=== PATIENT | male | born 1990 | race Caucasian/White ===

== ENCOUNTER 2019-12-02 18:40 | Emergency (ER) | payer OTHER ==
[~2019-12-02] VITALS: Ht 167.6 cm; Wt 65.3 kg
[2019-12-02] MEDS ORDERED: TRAZODONE 150150 M1 PO (18:59)
[2019-12-02] MEDS ORDERED: WELLBUTRIN 75 M75 M1 PO (18:59)
[2019-12-02 19:09] LABS: ABSOLUTE BASOPHILS 0.1 thou/uL (0.0-0.2); ABSOLUTE EOSINOPHILS 0.6 thou/uL (0.0-0.7); ABSOLUTE LYMPHOCYTES 3.6 thou/uL (0.8-5.3); ABSOLUTE MONOCYTES 0.4 thou/uL (0.0-1.2); ABSOLUTE NEUTROPHILS 2.9 thou/uL (1.6-8.1); BASOPHILS 0.9 %; EOSINOPHILS 8.2 %; HEMATOCRIT 40.9 % (42.0-52.0); HEMOGLOBIN 14.4 gm/dL (14.0-18.0); LYMPHOCYTES 48.1 %; MCH 31.4 pg (26.0-34.0); MCHC 35.3 g/dL (28.0-37.0); MONOCYTES 4.7 %; MPV 8.2 fl. (7.2-11.1); NUCLEATED RBCS 0 /100WBC; PLATELET COUNT* 220 thou/uL (150-400); POLYS 38.1 %; RDW-CV 14.5 % (10.5-14.5); WBC 7.5 thou/uL (4.0-11.0)
[2019-12-02 19:16] LABS: ANION GAP 7 mmol/L (7-16); BUN 8 mg/dL (7-18); CALCIUM 8.4 mg/dL (8.5-10.1); CHLORIDE 104 mmol/L (98-107); CO2 28 mmol/L (21-32); CREATININE 1.1 mg/dL (0.6-1.3); GLUCOSE 99 mg/dL (70-99); POTASSIUM 3.8 mmol/L (3.5-5.1); SODIUM 139 mmol/L (136-145)
[2019-12-02 19:20] LABS: PROTIME 10.6 Seconds (9.20-11.50)
[2019-12-02 19:30] LABS: ALKALINE PHOSPHATASE 76 U/L (46-116); CK-MB MASS < 0.5 ng/mL (<0.5-3.6); NT-PRO BRAIN NAT PEPTIDE 18 pg/mL (<300); SGOT 13 U/L (15-37); SGPT 21 U/L (30-65); TOTAL BILIRUBIN 0.2 mg/dL (<0.1-1.0); TOTAL PROTEIN 6.9 g/dL (6.4-8.2)
[2019-12-02 19:32] LABS: ACETAMINOPHEN < 2 ug/mL (10-30); ALCOHOL < 10 mg/dL (<10); SALICYLATE 3.2 mg/dL (2.8-20.0)
[2019-12-02 20:13] LABS: URINE BILIRUBIN NEGATIVE (Negative); URINE BLOOD NEGATIVE (Negative); URINE CLARITY CLEAR; URINE COLOR YELLOW; URINE GLUCOSE-RANDOM NEGATIVE (Negative); URINE KETONES NEGATIVE (Negative); URINE LEUKOCYTES-REFLEX NEGATIVE (Negative); URINE NITRITE-REFLEX NEGATIVE (Negative); URINE PROTEIN NEGATIVE (Negative); URINE SPECIFIC GRAVITY <= 1.005 (1.005-1.030); URINE UROBILINOGEN 0.2 E.U./dl (0.2-1.0)
[2019-12-02 20:21] LABS: AMP/METHAMP Negative (Negative); BARBITURATES Negative (Negative); BENZODIAZEPINES POSITIVE (Negative); COCAINE Negative (Negative); METHADONE Negative (Negative); OPIATES Negative (Negative); PCP Negative (Negative); THC POSITIVE (Negative)
[2019-12-02 23:03] VITALS: BP 120/71
--- NOTE | 2019-12-03 11:42 | EKG ---
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
== END 2019-12-02 23:03 | disposition home or self-care (01) ==
LOC: M.ERS 18:40
PROVIDERS: Family Medicine
DX: T42.4X1A Poisoning by benzodiazepines, accidental (unintentional), initial encounter (principal); F32.9 Major depressive disorder, single episode, unspecified; Y92.89 Other specified places as the place of occurrence of the external cause

== ENCOUNTER 2020-02-02 06:23 | Emergency (ER) | payer OTHER ==
[~2020-02-02] VITALS: Ht 175.3 cm; Wt 61.2 kg
[~2020-02-02 06:23] MED LIST: TRAZODONE 150150 M1 PO; WELLBUTRIN 75 M75 M1 PO
[2020-02-02] MEDS ORDERED: BACTRIM DS TAB1 EAC1 PO (07:04)
[2020-02-02 07:10] VITALS: BP 139/89
== END 2020-02-02 07:10 | disposition home or self-care (01) ==
LOC: M.ERS 06:23
DX: L03.114 Cellulitis of left upper limb (principal); F17.210 Nicotine dependence, cigarettes, uncomplicated

== ENCOUNTER 2020-02-06 09:19 | Inpatient (IN) | payer OTHER ==
[~2020-02-06] VITALS: Ht 152.4 cm; Wt 63.5 kg
[~2020-02-06 09:19] MED LIST changes: +BACTRIM DS TAB1 EAC1 PO
[2020-02-06 09:26] VITALS: BP 138/84
[2020-02-06 09:53] LABS: HEMATOCRIT 42.7 % (42.0-52.0); HEMOGLOBIN 14.9 gm/dL (14.0-18.0); MCH 31.3 pg (26.0-34.0); MCHC 34.8 g/dL (28.0-37.0); MCV 89.9 fL (80.0-100.0); MPV 8.6 fl. (7.2-11.1); NUCLEATED RBCS 0 /100WBC; PLATELET COUNT* 250 thou/uL (150-400); RBC 4.75 mil/uL (4.50-6.00); WBC 16.3 thou/uL (4.0-11.0)
[2020-02-06 10:03] LABS: CALCIUM 8.8 mg/dL (8.5-10.1); CREATININE 1.2 mg/dL (0.6-1.3); POTASSIUM 3.8 mmol/L (3.5-5.1)
[2020-02-06 10:07] LABS: ALBUMIN 4.1 g/dL (3.4-5.0); TOTAL BILIRUBIN 0.7 mg/dL (<0.1-1.0); TOTAL PROTEIN 7.8 g/dL (6.4-8.2)
[2020-02-06 10:08] LABS: APTT 34.7 Seconds (25.0-31.3); INR 1.2; PROTIME 12.1 Seconds (9.20-11.50)
[2020-02-06 10:37] LABS: ABSOLUTE MONOCYTES 0.8 thou/uL (0.0-1.2); ABSOLUTE NEUTROPHILS 14.5 thou/uL (1.6-8.1)
[2020-02-06 10:38] LABS: ANISOCYTOSIS 1+; PLATELET ESTIMATE ADEQUATE; POIKILOCYTOSIS 1+
[2020-02-06 13:43] VITALS: BP 124/70
[2020-02-06 14:10] VITALS: BP 140/78
[2020-02-06 16:20] LABS: AMP/METHAMP Negative (Negative); BARBITURATES Negative (Negative); BENZODIAZEPINES Negative (Negative); COCAINE Negative (Negative); METHADONE Negative (Negative); OPIATES POSITIVE (Negative); PCP Negative (Negative); THC POSITIVE (Negative)
[2020-02-06 19:40] VITALS: BP 139/70
[2020-02-06 23:52] VITALS: BP 129/57
[2020-02-07 04:32] LABS: ABSOLUTE EOSINOPHILS 0.4 thou/uL (0.0-0.7); ABSOLUTE LYMPHOCYTES 0.7 thou/uL (0.8-5.3); ABSOLUTE MONOCYTES 1.1 thou/uL (0.0-1.2); ABSOLUTE NEUTROPHILS 9.9 thou/uL (1.6-8.1); BASOPHILS 0.3 %; HEMATOCRIT 43.6 % (42.0-52.0); HEMOGLOBIN 14.9 gm/dL (14.0-18.0); LYMPHOCYTES 5.8 %; MCHC 34.3 g/dL (28.0-37.0); MCV 90.6 fL (80.0-100.0); MPV 8.7 fl. (7.2-11.1); NUCLEATED RBCS 0 /100WBC; PLATELET COUNT* 211 thou/uL (150-400); POLYS 81.9 %; RBC 4.82 mil/uL (4.50-6.00); RDW-CV 13.4 % (10.5-14.5); WBC 12.1 thou/uL (4.0-11.0)
[2020-02-07 05:08] LABS: CALCIUM 8.7 mg/dL (8.5-10.1); CREATININE 0.8 mg/dL (0.6-1.3)
[2020-02-07 07:00] VITALS: BP 139/80
[2020-02-07 12:26] VITALS: BP 128/61
[2020-02-07 15:36] VITALS: BP 136/79
[2020-02-07 19:30] VITALS: BP 139/79
[2020-02-08 00:25] VITALS: BP 141/74
[2020-02-08 04:00] VITALS: BP 139/82
[2020-02-08 08:00] VITALS: BP 142/78
[2020-02-08 10:00] LABS: ABSOLUTE EOSINOPHILS 0.5 thou/uL (0.0-0.7); ABSOLUTE LYMPHOCYTES 1.2 thou/uL (0.8-5.3); ABSOLUTE MONOCYTES 0.6 thou/uL (0.0-1.2); ABSOLUTE NEUTROPHILS 8.5 thou/uL (1.6-8.1); BASOPHILS 0.2 %; EOSINOPHILS 4.3 %; HEMATOCRIT 38.9 % (42.0-52.0); HEMOGLOBIN 13.3 gm/dL (14.0-18.0); LYMPHOCYTES 11.3 %; MCH 31.1 pg (26.0-34.0); MCHC 34.3 g/dL (28.0-37.0); MCV 90.7 fL (80.0-100.0); MONOCYTES 5.7 %; MPV 8.2 fl. (7.2-11.1); NUCLEATED RBCS 0 /100WBC; PLATELET COUNT* 240 thou/uL (150-400); POLYS 78.5 %; RBC 4.29 mil/uL (4.50-6.00); RDW-CV 13.2 % (10.5-14.5); WBC 10.8 thou/uL (4.0-11.0)
[2020-02-08 11:04] LABS: ESR (SEDRATE) 70 mm/hr (0-15)
[2020-02-08 12:40] VITALS: BP 133/72
--- NOTE | 2020-02-08 15:34 | CON ---
[address] [address] CONSULTATION Name: ALISA GRIFFIN Room: [address] IN .R.#: [id number] Admission: 02/06/20 Attend Phys: Jah Taylor MD Discharge: Date of : [birth year] Report #: [id number] THIS REPORT FOR: //name// cc: ROGERIO Duenas family physician/PCP ROGERIO Duenas family physician/PCP ~ THIS REPORT FOR: //name// CC: Jah BEATTY physician/PCP DATE OF SERVICE: 02/07/2020 INFECTIOUS DISEASE CONSULTATION REASON FOR CONSULTATION: I was asked to evaluate concerning soft tissue infection of his left hand following IV drug injection. HISTORY OF PRESENT ILLNESS: The patient is a 30-year-old right-handed individual who injected heroin into his left wrist. Subsequently developed increased pain and swelling and was seen on 02/02/2020 in Emergency Room, placed on Bactrim, but did not improve, then returns with increased pain. No fever, chills, or sweats. Swelling had worsened as well and had difficulty gripping. Was seen in the Emergency Room here and placed on vancomycin. Blood cultures now are showing Gram-positive cocci in one of two blood cultures drawn. He was seen by Orthopedic Surgery. Continued on IV antibiotics and elevation along with dressing changes. No prior history of skin or soft tissue infection. No history of MRSA infection. He does smoke cigarettes. ALLERGIES: None known. MEDICATIONS: As noted on his MAR, now on vancomycin. Previously was on Bactrim. PAST MEDICAL HISTORY: Significant for childhood surgery on his eyes and his ear, depression. Otherwise, has been healthy. FAMILY HISTORY: Negative for tuberculosis history. SOCIAL HISTORY: Smoker of cigarettes, IV drug use. 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 REVIEW OF SYSTEMS: A 14-point review is negative other than what has been described above. PHYSICAL EXAMINATION: VITAL SIGNS: He is afebrile and hemodynamically stable. HEENT: [place] [address] CONSULTATION Name: ALISA GRIFFIN Room: [address] IN [facility]#: [id number] Admission: 02/06/20 Attend Phys: Jah Taylor MD Discharge: Date of : [birth year] Report #: [id number] NECK: Supple. LUNGS: Clear to auscultation. HEART: Regular without appreciable murmur, gallop, or rub. ABDOMEN: Soft and nontender with no hepatosplenomegaly or mass. EXTREMITIES: The left upper extremity was in wrap and with gauze and Harlan. Had swelling throughout the hand and wrist. Had difficulty gripping due to the swelling and pain. Limited range of motion in his wrist. Fingers sensation intact to fine touch. Capillary refill was normal. He had erythema of the volar aspect of his forearm, which also was mildly tender. There was no fluctuance. No palpable adenopathy in the axilla or elbow region. IMAGING: X-ray, no osseous abnormalities. LABORATORY STUDIES: Reviewed. Blood cultures noted. IMPRESSION: Soft tissue infection of the left hand and wrist region after IV drug injection. Suspect component of septic thrombophlebitis. So far no evidence of compartment syndrome. RECOMMENDATIONS: Continue vancomycin. Elevate left upper extremity. Reassess in the next 24 hours. If any worsening or failure to improve, then image with MRI scan to further assess for deep fluid collection. <ELECTRONICALLY SIGNED> By: Fabrizio Rizzo MD 02/08/20 1534 1422 [id number] Rizzo MD /nt
[2020-02-08 16:01] VITALS: BP 141/76
[2020-02-08 20:00] VITALS: BP 142/81
[2020-02-09 00:29] VITALS: BP 134/82
[2020-02-09 04:59] VITALS: BP 137/78
[2020-02-09 08:30] VITALS: BP 130/77
[2020-02-09 12:00] VITALS: BP 134/76
[2020-02-09 12:03] VITALS: BP 134/76
--- NOTE | 2020-02-09 12:49 | CON ---
[address] [address] CONSULTATION Name: ALISA GRIFFIN Maritza Room: [address] IN M.R.#: [id number] Admission: 02/06/20 Attend Phys: Jah Taylor MD Discharge: Date of : [birth year] Report #: [id number] THIS REPORT FOR: //name// cc: ROGERIO Duenas family physician/PCP ROGERIO Duenas family physician/PCP ~ THIS REPORT FOR: //name// CC: Jah Taylor FAM physician/PCP CARDIOLOGY CONSULTATION INDICATION: Chest pain, abnormal EKG. HISTORY OF PRESENT ILLNESS: The patient is a 30-year-old gentleman who was admitted to the hospital with cellulitis involving his left hand. While in hospital, he noted chest pain. The pain was midsternal without radiation. The pain was persistent for a couple of hours. An EKG showed sinus rhythm with diffuse ST elevation consistent with early repolarization. Cardiac enzymes were negative x 3 sets. The pain has subsequently resolved. He is without cardiac complaint at this time. PAST MEDICAL HISTORY: History of substance abuse. There is a history of depression. FAMILY HISTORY: Noncontributory. SOCIAL HISTORY: The patient smokes tobacco daily. Denies use of alcohol. PHYSICAL EXAMINATION: VITAL SIGNS: Stable. Blood pressure 133/72, pulse 71 and regular. GENERAL: This is a pleasant gentleman in no distress. Mood and affect appropriate. HEENT: Extraocular muscles intact. Mucous membranes moist. NECK: Shows no jugular venous distention. There are no carotid bruits. CHEST: Reveals clear lung moody. CARDIOVASCULAR: Reveals a regular rhythm with no gallop or murmur. ABDOMEN: Reveals normal bowel sounds. The abdomen is soft, nontender. EXTREMITIES: Shows no edema in the lower extremities. The left hand is wrapped. He does appear to have mobility of all digits. LABORATORY DATA: EKG shows sinus rhythm with diffuse ST elevation suggesting early repolarization. IMPRESSION AND RECOMMENDATIONS: 1. Chest pain, atypical. The patient ruled out for myocardial infarction. I would not pursue further evaluation of chest [place] [address] CONSULTATION Name: ALISA RGIFFIN Room: [address] IN [facility]#: [id number] Admission: 02/06/20 Attend Phys: Jah Taylor MD Discharge: Date of : [birth year] Report #: [id number] 2. Abnormal EKG, likely normal variant in this young, otherwise healthy gentleman. We will obtain echocardiogram to rule out underlying cardiac structural abnormality. 3. Cellulitis, left hand. The patient is not at prohibitive risk to undergo surgery if necessary. <ELECTRONICALLY SIGNED> By: Jose Hemphill MD, FACC 02/09/20 1249 1340 1407Michael Rolando Hemphill MD, FACC /nt
--- NOTE | 2020-02-09 15:13 | 2DMMODE ---
[place] [address] 2 D/M-MODE ECHOCARDIOGRAM Name: ALISA GRIFFIN Room: [address] IN .R.#: [id number] Admission: 02/06/20 Attend Phys: Jah Taylor, Discharge: Date of : [birth year] Date of Service: 02/09/20 1511 Report #: [id number] THIS REPORT FOR: cc: FAM - No family physician/PCP FAM - No family physician/PCP Malcolm Kay MD [facility] ~ APPROVED REPORT Study performed: 02/09/2020 11:21:24 EXAM: Comprehensive 2D, Doppler, and color-flow Echocardiogram Patient Location: In-Patient Room #: [facility] Status: routine BSA: 1.75 HR: 69 bpm BP: 137/78 mmHg Rhythm: NSR Other Information Study Quality: Excellent Indications Abnormal ECG 2D Dimensions IVSd: 8.41 (7-11mm) LVOT Diam: 19.31 (18-24mm) LVDd: 47.82 mm PWd: 9.13 (7-11mm) Ascending Ao: 25.81 (22-36mm) LVDs: 36.53 (25-40mm) Aortic Root: 29.15 mm Aortic Valve AoV Peak Candelario.: 1.48 m/s AO Peak Gr.: 8.75 mmHg LVOT Max P.20 mmHg AO Mean Gr.: 4.75 mmHg LVOT Mean P.50 mmHg LVOT Max V: 1.14 m/s AO V2 VTI: 26.97 cm LVOT Mean V: 0.72 m/s SIVAKUMAR (VTI): 2.27 cm2 LVOT V1 VTI: 20.86 cm Mitral Valve E/A Ratio: 1.66 MV Decel. Time: 151.25 ms MV E Max Candelario.: 0.85 m/[place] [address] 2 D/M-MODE ECHOCARDIOGRAM Name: ALISA GRIFFIN Room: [address] IN ..#: [id number] Admission: 02/06/20 Attend Phys: Jah Taylor, Discharge: Date of : [birth year] Date of Service: 02/09/20 1511 Report #: [id number] MV PHT: 43.86 ms MVA (PHT): 5.02 cm2 TDI E/Lateral E': 4.25 E/Medial E': 6.07 Medial E' Candelario.: 0.14 m/s Lateral E' Candelario.: 0.20 m/s Pulmonary Valve PV Peak Candelario.: 1.04 m/s PV Peak Gr.: 4.32 mmHg Left Ventricle The left ventricle is normal size. There is normal LV segmental wall motion. There is normal left ventricular wall thickness. Left ventricular systolic function is normal. The left ventricular ejection fraction is within the normal range. LVEF is 55-60%. The left ventricular diastolic function is normal. Right Ventricle The right ventricle is normal size. The right ventricular systolic function is normal. Atria The left atrium size is normal. The right atrium size is normal. Aortic Valve The aortic valve is normal in structure. No aortic regurgitation is present. There is no aortic valvular stenosis. Mitral Valve The mitral valve is normal in structure. There is no mitral valve regurgitation noted. No evidence of mitral valve stenosis. Tricuspid Valve The tricuspid valve is normal in structure. Trace tricuspid regurgitation. Pulmonic Valve The pulmonary valve is normal in structure. There is no pulmonic valvular regurgitation. Great Vessels The aortic root is normal in size. IVC is normal in size and collapses >50% [place] [address] 2 D/M-MODE ECHOCARDIOGRAM Name: ALISA GRIFFIN Maritza Room: [address]#: [id number] Admission: 02/06/20 Attend Phys: Jah Taylor, Discharge: Date of : [birth year] Date of Service: 02/09/20 1511 Report #: [id number] Pericardium There is no pericardial effusion. <Conclusion> Left ventricular systolic function is normal. The left ventricular ejection fraction is within the normal range. <ELECTRONICALLY SIGNED> By: Malcolm Kay MD, [facility] 02/09/20 151 10 10 Malcolm Kay MD, FAC /INF
[2020-02-09 20:00] VITALS: BP 129/76
[2020-02-10] VITALS: BP 127/66
[2020-02-10 08:00] VITALS: BP 140/75
[2020-02-10 16:49] VITALS: BP 131/81
[2020-02-10 20:00] VITALS: BP 116/77
[2020-02-11 08:00] VITALS: BP 144/79
[2020-02-11 09:53] LABS: ABSOLUTE BASOPHILS 0.1 thou/uL (0.0-0.2); ABSOLUTE EOSINOPHILS 0.7 thou/uL (0.0-0.7); ABSOLUTE LYMPHOCYTES 1.6 thou/uL (0.8-5.3); ABSOLUTE MONOCYTES 0.5 thou/uL (0.0-1.2); ABSOLUTE NEUTROPHILS 4.3 thou/uL (1.6-8.1); BASOPHILS 1.5 %; EOSINOPHILS 9.5 %; HEMATOCRIT 39.2 % (42.0-52.0); HEMOGLOBIN 13.5 gm/dL (14.0-18.0); MCHC 34.4 g/dL (28.0-37.0); MCV 90.1 fL (80.0-100.0); MONOCYTES 7.3 %; MPV 7.3 fl. (7.2-11.1); NUCLEATED RBCS 0 /100WBC; POLYS 59.7 %; RBC 4.35 mil/uL (4.50-6.00); RDW-CV 13.2 % (10.5-14.5); WBC 7.2 thou/uL (4.0-11.0)
[2020-02-11 10:02] LABS: ALBUMIN 2.7 g/dL (3.4-5.0); CALCIUM 9.3 mg/dL (8.5-10.1); CREATININE 0.8 mg/dL (0.6-1.3); POTASSIUM 4.4 mmol/L (3.5-5.1); TOTAL BILIRUBIN 0.3 mg/dL (<0.1-1.0); TOTAL PROTEIN 7.5 g/dL (6.4-8.2)
[2020-02-11 10:03] LABS: PLATELET COUNT* 383 thou/uL (150-400)
[2020-02-11 12:00] VITALS: BP 137/84
--- NOTE | 2020-02-11 12:08 | OP ---
[address] [address] OPERATIVE REPORT Name: ALISA GRIFFIN Maritza Room: [address] IN M.R.#: [id number] Admission: 02/06/20 Attend Phys: Jah Taylor MD Discharge: Date of : [birth year] Report #: [id number] THIS REPORT FOR: //name// cc: ROGERIO Duenas family physician/PCP ROGERIO Duenas family physician/PCP ~ THIS REPORT FOR: //name// CC: Jah Taylor [facility] physician/PCP DATE OF SERVICE: 02/09/2020 PREOPERATIVE DIAGNOSIS: Abscess to the left hand first interosseous muscle. The first compartment extending to the dorsal aspect of the hand. POSTOPERATIVE DIAGNOSIS: Massive abscess to the left dorsal hand compartments 1 through 4 as well as the interosseous first webspace muscle. SURGERY PERFORMED: 1. Surgical incision and drainage of the left hand one through four dorsal wrist compartments. 2. We did a surgical incision and drainage of the first webspace interosseous muscle. 3. We did tissue cultures x 1 as well as four abscess cultures on the first compartment as well as the fourth compartment areas. SURGEON: David Steele DO PRODUCTION GEAR CUTTER: Dr. Baron. SECOND SAMPLE TAILOR: Dr. Rios. ANESTHESIA: General anesthetic. The patient has been on scheduled antibiotics per the Infectious Disease Department. ESTIMATED BLOOD LOSS: 100 mL. DRAINS: He has a Dipmle drain x 1 to his left hand. SPECIMENS: He has no complications otherwise. GROSS FINDINGS: On examination of his hand, he had a lot of dorsal edema to his hand. He is still able to move all his fingers of his left hand including the thumb. The patient just had pain in that dorsal [place] [address] OPERATIVE REPORT Name: ALISA GRIFFIN Room: [address] IN [facility].#: [id number] Admission: 02/06/20 Attend Phys: Jah Taylor MD Discharge: Date of : 90 Report #: [id number] from the thumb to the ring finger. The patient had erythema in that area. He did by MRI correlate with the abscess stated above and upon entering the hand through initially a thumb incision for the first compartment a massive abscess was evacuated. At this point in time, a surgical incision was made of the fascia. The first interossei muscle and abscess was noted there and this was evacuated. I then went over and made a separate incision in line with the fourth finger to address the fourth compartment area and those extensor tendons were visualized and a large abscess was noted over there. SURGERY IN DETAIL: The patient was taken to the operating room and placed on table, given the benefit of general anesthetic. He had a well-padded tourniquet placed high on his arm, but we did not use a tourniquet during the surgical aspect of this operation. Surgery began with chlorhexidine prep and sterile draping for left arm surgery including the hand. Timeout was called and verified by everyone in the room for the left hand. At this point in time, I started with the thumb incision over the first dorsal wrist compartment area extending all the way from the interosseous muscle to the radial styloid through skin and subcutaneous tissues with a 15-blade scalpel. Care was taken to protect all external thumb tendons as well as the superficial radial nerve. A large abscess was identified upon entering the subcutaneous tissue plane. It was cultured as stated above. I then slowly dissected distally to the first interosseous muscle, opened that fascia up, put a Wells within that muscle, an abscess was noted to be there and evacuated and cultured. Likewise, I made a second incision line with the fourth ray dorsally over the dorsal hand region to the wrist area with a 15-blade scalpel. The abscess was noted over in that compartment and this was evacuated. I did a tissue culture of a small phlegmon that was evaluated as well. Surgery now continued at this point in time with 3000 mL normal saline irrigation across the entire surgical site. A [place] drain was placed from one incision to the other and left temporarily in to be addressed later. We now closed the skin with 0 Vicryl and 3-0 nylon in a superficial loose design as this will be washed out again later as he had too much edema to totally close them. A bulky left hand dressing was applied. He was transferred off the table, taken to recovery in stable condition. I attest I was present for the entire surgery. All needle, instrument, sponge counts were correct. <ELECTRONICALLY SIGNED> By: David Steele DO 02/11/20 1208 1646 1850David Steele DO /zuhair
[2020-02-11 12:30] VITALS: BP 137/84
[2020-02-11 20:00] VITALS: BP 139/73
[2020-02-12] VITALS: BP 134/77
[2020-02-12 04:51] LABS: ABSOLUTE BASOPHILS 0.1 thou/uL (0.0-0.2); ABSOLUTE EOSINOPHILS 0.7 thou/uL (0.0-0.7); ABSOLUTE LYMPHOCYTES 2.8 thou/uL (0.8-5.3); ABSOLUTE MONOCYTES 0.6 thou/uL (0.0-1.2); ABSOLUTE NEUTROPHILS 2.5 thou/uL (1.6-8.1); BASOPHILS 1.2 %; EOSINOPHILS 10.5 %; HEMATOCRIT 37.8 % (42.0-52.0); HEMOGLOBIN 13.1 gm/dL (14.0-18.0); LYMPHOCYTES 41.8 %; MCHC 34.6 g/dL (28.0-37.0); MCV 89.4 fL (80.0-100.0); MPV 7.3 fl. (7.2-11.1); NUCLEATED RBCS 0 /100WBC; PLATELET COUNT* 384 thou/uL (150-400); POLYS 37.5 %; RBC 4.23 mil/uL (4.50-6.00); RDW-CV 13.1 % (10.5-14.5); WBC 6.7 thou/uL (4.0-11.0)
[2020-02-12 05:03] LABS: PREALBUMIN 19.1 mg/dL (18.0-35.7)
--- NOTE | 2020-02-12 08:16 | OP ---
[address] [address] OPERATIVE REPORT Name: ALISA GRIFFIN Room: [address] IN M.R.#: [id number] Admission: 02/06/20 Attend Phys: Jah Taylor MD Discharge: Date of : [birth year] Report #: [id number] THIS REPORT FOR: //name// cc: ROGERIO Duenas family physician/PCP ROGERIO Duenas family physician/PCP ~ THIS REPORT FOR: //name// CC: Jah Taylor [facility] physician/PCP DICTATED BY: Ramesh Baron DO DATE OF SERVICE: 02/11/2020 PREOPERATIVE DIAGNOSIS: Left hand dorsal abscess involving first through 4th compartments and the first dorsal interosseous muscle. POSTOPERATIVE DIAGNOSIS: Left hand dorsal abscess involving first through 4th compartments and the first dorsal interosseous muscle. OPERATION: Irrigation and debridement with drainage of abscess from left hand first through fourth dorsal compartments and first dorsal interosseous. SURGEON: David Steele DO ASSISTANTS: Ramesh Baron DO and Tree Rios DO ESTIMATED BLOOD LOSS: 100 mL ANTIBIOTICS: Scheduled. ANESTHESIA: General. DRAINS: [place]. SPECIMEN: Multiple fluid cultures were taken and sent to the lab. Also tissue culture. OPERATIVE FINDINGS: Upon incision through the subcutaneous tissue, there was immediate evacuation of a large amount of purulent material from the dorsum of the hand, also within the first dorsal interosseous muscle. INDICATIONS FOR PROCEDURE: The patient is a 30-year-old male who had a history of IV drug abuse. He had developed swelling and pain at the previous injection site. He presented to the [facility] where he was diagnosed with soft tissue infection and was initially started on IV [facility] [address] [place] [address] OPERATIVE REPORT Name: ALISA GRIFFIN Room: [address] IN ..#: [id number] Admission: 02/06/20 Attend Phys: Jah Taylor MD Discharge: Date of : 90 Report #: [id number] antibiotics; however, he continued progression of his symptoms, had an MRI, which did confirm developing abscess to the dorsum of the hand. We discussed with him the operative indications. Risks, indications, and treatment alternatives were all reviewed with the patient and his informed consent was obtained to proceed with the scheduled procedure. DESCRIPTION OF PROCEDURE: The patient was taken to the operating suite, placed on table in supine position. General anesthesia was then induced. A well-padded tourniquet was placed in the left upper arm; however, this was not inflated during the procedure. Left upper extremity was then sterilely prepped and draped free in the usual fashion. Time-out was then performed to confirm the safety checklist that had been completed and all the present OR personnel were in agreement. A longitudinal incision was drawn out over the most prominent area of fluctuance over the first dorsal compartment. A 15 blade was used to make Incision through the skin and subcutaneous tissue. There was immediate expression of a large amount of purulent tissue. Swabs were taken for culture. Dissection was carried down to the dorsal compartments of the hand and into the first dorsal interosseous muscle where once again another pocket of purulent material was expressed. A second incision was then made on the more ulnar aspect of the hand over the fourth metacarpal region and once again more purulent material was expressed and the wound was then copiously irrigated with 9 liters of normal saline. The skin was then closed with a running 3-0 nylon suture as well as some 0 Prolene suture where there was significant tension on the tissues. The skin was primarily closed. However, there was some tension on the closure and there was significant swelling throughout the hand. The patient was placed in a bulky dressing. He was awakened from general anesthetic and transferred to PACU in stable condition with no apparent complications. Sponge and needle counts were reported correct per the OR personnel. ATTESTATION: Dr. Steele was present for all critical aspects of surgery. <ELECTRONICALLY SIGNED> By: David Steele DO 02/12/20 0816 1559 1652Cparvin Steele DO /zuhair
[2020-02-12 17:01] VITALS: BP 138/81
[2020-02-12 20:00] VITALS: BP 139/87
[2020-02-13 00:01] VITALS: BP 126/89
[2020-02-13 04:34] LABS: HEMATOCRIT 39.3 % (42.0-52.0); HEMOGLOBIN 13.6 gm/dL (14.0-18.0); MCHC 34.5 g/dL (28.0-37.0); MCV 89.9 fL (80.0-100.0); MPV 7.4 fl. (7.2-11.1); NUCLEATED RBCS 0 /100WBC; PLATELET COUNT* 454 thou/uL (150-400); RBC 4.37 mil/uL (4.50-6.00); RDW-CV 12.8 % (10.5-14.5)
[2020-02-13 05:14] LABS: ALBUMIN 2.8 g/dL (3.4-5.0); CALCIUM 9.1 mg/dL (8.5-10.1); CREATININE 0.9 mg/dL (0.6-1.3); POTASSIUM 4.1 mmol/L (3.5-5.1); TOTAL BILIRUBIN 0.2 mg/dL (<0.1-1.0); TOTAL PROTEIN 7.3 g/dL (6.4-8.2)
[2020-02-13 07:25] LABS: ABSOLUTE BASOPHILS 0.3 thou/uL (0.0-0.2); ABSOLUTE EOSINOPHILS 0.9 thou/uL (0.0-0.7); ABSOLUTE LYMPHOCYTES 3.8 thou/uL (0.8-5.3); ABSOLUTE MONOCYTES 0.4 thou/uL (0.0-1.2); ABSOLUTE NEUTROPHILS 1.7 thou/uL (1.6-8.1); ATYPICAL LYMPHS 1 %
[2020-02-13 07:26] LABS: PLATELET ESTIMATE ADEQUATE
[2020-02-13 07:40] VITALS: BP 131/79
[2020-02-13] MEDS ORDERED: DICLOXACILLIN250 M1 PO (11:48)
[2020-02-13] MEDS ORDERED: NORCO 5-325 TA1 EAC1 PO (11:49)
[2020-02-13] MEDS ORDERED: ACETAMINOPHEN325 MG PO (11:51)
[2020-02-13 11:53] VITALS: BP 131/79
--- NOTE | 2020-02-13 12:22 | EKG ---
[place] [address] ELECTROCARDIOGRAM REPORT Name: ALISA GRIFFIN Room: [address] ADM IN .R.#: [id number] Admission: 02/06/20 Attend Phys: Jah Taylor, Discharge: Date of : 89 Date of Service: 02/07/20 1633 Report #: [id number] THIS REPORT FOR: //name// [facility] Test Date: 2020-02-07 Test Time: 16:33:45 Pat Name: ALISA GRIFFIN Department: Room: [address] Gender: M Manager Terminal: DANIELLE : 1990 Requested By: Jose Hemphill Order Number: [id number] Anshu MD: Malcolm Kay Measurements Intervals [place] Rate: 78 P: 59 [place]: 155 QRS: 56 QRSD: 91 T: 61 QT: 363 QTc: 414 Interpretive Statements Sinus arrhythmia ST elev, probable normal early repol pattern Electronically Signed On 02-09-2020 9:07:47 CDT by Malcolm Kay [email or web address] <ELECTRONICALLY SIGNED> By: Malcolm Kay MD, [facility] 02/09/20 0907 1633 163 Malcolm Kay MD, FAC /EPI
--- NOTE | 2020-02-13 12:22 | EKG ---
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
== END 2020-02-13 12:10 | disposition home or self-care (01) | DRG 854 ==
LOC: M.ERS 09:19 → M.2W 12:28 → M.TBA-ER 12:28 → M.2W 14:08
PROVIDERS: Family Medicine; Nurse Practitioner; Orthopaedic Surgery; ADMIT Internal Medicine
PROC: 0J9K0ZZ Drainage of Left Hand Subcutaneous Tissue and Fascia, Open Approach (ICD-10-PCS; principal; 2020-02-09)
PROC: 0J9K0ZZ Drainage of Left Hand Subcutaneous Tissue and Fascia, Open Approach (ICD-10-PCS; 2020-02-11)
DX: A40.9 Streptococcal sepsis, unspecified (principal); L03.114 Cellulitis of left upper limb; F32.9 Major depressive disorder, single episode, unspecified; R65.10 Systemic inflammatory response syndrome (SIRS) of non-infectious origin without acute organ dysfunction; F17.210 Nicotine dependence, cigarettes, uncomplicated; Z79.899 Other long term (current) drug therapy